=== PATIENT | male | born 1940 | race Caucasian/White ===

== ENCOUNTER 2018-04-29 00:02 | Emergency (ER) | payer BC, MEDICARE ==
[~2018-04-29 00:02] MED LIST: ALPR0.25 PO; AMIODARONE 150 MG/3 ML VIAL ONE; EPINEPHrine SYRINGE 1 MG/10 ML SYRINGE ONE; LISI-334 PO; METF500T16 PO; OXAZ30CA2 PO; SIMV20TA3 PO
--- NOTE | 2018-04-29 00:44 | PHYS DOC ---
Adult General Chief Complaint Chief Complaint: CPR/FULL ARREST HPI HPI Patient is a 77 year old male who presents with cardiac arrest. Patient was brought in by EMS with CPR in progress and the patient having already been intubated. Patient was at home this evening had a syncopal event and so family called EMS. EMS performed a 12-lead EKG that showed ST depressions in the septal leads. As they put the patient on the cot and took him out to the ambulance he went into cardiac arrest. He was initially in V. fib and received epinephrine and amiodarone along with defibrillation which never restored circulation. Patient's end-tidal CO2 was never greater than 10%. Further history is unavailable due to altered mental status [] Review of Systems Review of Systems Unable to obtain due to acuity of the situation All other systems were reviewed and found to be within normal limits, except as documented in this note. Allergies Allergies Allergies Coded Allergies Type Severity Reaction Last Updated Verified No Known Drug Allergies 05/04/13 No Physical Exam Physical Exam Constitutional: Unresponsive[] HENT: Normocephalic, atraumatic, bilateral external ears normal, oropharynx moist, no oral exudates, nose normal. ET tube present in the mouth [] Eyes: Nonresponsive. [] Neck: No step-off or crepitus[] Cardiovascular: No heart sounds[] Lungs & Thorax: Bilateral breath sounds with bag valve respirations[] Abdomen: No masses. [] Skin: Warm, dry, no erythema, no rash. [] Back: Not evaluated for tenderness or CVA tenderness[] Extremities: No tenderness, no cyanosis, no clubbing, ROM intact, no edema. [] EKG EKG [] Radiology/Procedures Radiology/Procedures [] Course & Med Decision Making Course & Med Decision Making Pertinent Labs and Imaging studies reviewed. (See chart for details) ED course: Patient arrived by EMS, and was placed on our bed from their cot. CPR was continued. Patient received epinephrine as well as an additional 150 mg of amiodarone since he had already received 300 in route. After the medicines were administered and several pulse checks were performed without any return of spontaneous circulation, and noting that the patient had been in arrest for approximately 20 minutes by EMS, it was deemed that further resuscitative efforts would be futile and the code was terminated at 0008. Family was kept apprised of the progress of the code as well as the patient's . Critical care time of 30 minutes for bedside resuscitative efforts as well as discussion with family. [] Dragon Disclaimer Dragon Disclaimer This electronic medical record was generated, in whole or in part, using a voice recognition dictation system. Departure Departure Impression: Primary Impression: Cardiac arrest Disposition: 20 Condition: Referrals: LESVIA ESTRADA (PCP) THUY NOBLE DO Apr 29, 2018 00:44
== END 2018-04-29 03:20 | disposition expired ==
LOC: ER 00:07
DX: I46.9 Cardiac arrest, cause unspecified (principal)
CPT/HCPCS: 92950; 99285; J0171; J0282